=== PATIENT | male | born 1995 | race Caucasian/White ===

== ENCOUNTER 2023-08-19 16:33 | Emergency (ER) | payer MEDICAID ==
[~2023-08-19] VITALS: Ht 172.7 cm; Wt 65.0 kg
[2023-08-19 16:42] VITALS: O2SAT 97
[2023-08-19 16:58] LABS: HEMATOCRIT 44.9 % (42.0-52.0); MEAN CORPUSCULAR HEMOGLOBIN 31.7 pg (28.0-32.0); MEAN CORPUSCULAR HGB CONC 33.4 g/dL (31.0-37.0); MEAN CORPUSCULAR VOLUME 94.9 fL (80.0-94.0); PLATELET 287 x1000/uL (130-400); RED BLOOD CELL COUNT 4.73 mill/uL (4.7-6.1); RED CELL DISTRIBUTION WIDTH 12.7 % (11.6-14.6); WHITE BLOOD COUNT 5.2 x1000/uL (4.5-11.0)
[2023-08-19 17:05] LABS: CARBON DIOXIDE 26 mEq/L (21-32); CHLORIDE 107 mEq/L (98-107); POTASSIUM 3.7 mEq/L (3.5-5.1); SODIUM 140 mEq/L (136-145)
[2023-08-19 17:06] LABS: CALCIUM 9.2 mg/dL (8.7-10.4)
[2023-08-19 17:10] LABS: CREATININE 0.8 mg/dL (0.6-1.3); GLUCOSE 98 mg/dL (70-105)
[2023-08-19 17:11] LABS: UREA NITROGEN BLOOD 10 mg/dL (9-23)
[2023-08-19 17:12] LABS: ALANINE AMINOTRANSFERASE 16 IU/L (10-49); ALBUMIN 4.9 g/dL (3.2-4.8); ASPARTATE AMINOTRANSFERASE 21 IU/L (<34)
[2023-08-19 17:13] LABS: BILIRUBIN DIRECT 0.4 mg/dL (<=3.0); BILIRUBIN TOTAL 0.9 mg/dL (0.1-1.0); PROTEIN TOTAL 7.4 g/dL (6.0-8.3)
[2023-08-19] MEDS ORDERED: AZIT500T8 MT (18:49)
[2023-08-19] MEDS ORDERED: LOPE2CAP MT (18:50)
[2023-08-19 19:15] VITALS: BP 122/71; PULSE 88; RESP 20; TEMP 98.6
== END 2023-08-19 19:16 | disposition home or self-care (01) ==
LOC: ER 16:33
DX: K52.9 Noninfective gastroenteritis and colitis, unspecified (principal); Z88.0 Allergy status to penicillin; Z88.1 Allergy status to other antibiotic agents; Z88.6 Allergy status to analgesic agent
CPT/HCPCS: 36415; 80048; 80076; 85027; 99283